=== PATIENT | female | born 1985 | race Caucasian/White ===

== ENCOUNTER → 2018-11-10 | Outpatient (CLI) | payer OTHER ==
--- NOTE | 2018-11-10 14:36 | US ---
EXAMINATION TYPE: US abdomen complete DATE OF EXAM: 11/10/2018 COMPARISON: NONE CLINICAL HISTORY: R10.30 LOWER ABD PAIN,R10.9 LT LATERAL ABD PAIN,K45.8. LUQ PAIN FOR 1 MONTH, starte d new supplements, stopped smoking EXAM MEASUREMENTS: Liver Length: 13.9 cm Gallbladder Wall: 0.2 cm CBD: 0.4 cm Spleen: 11.7 cm Right Kidney: 10.1 x 4.2 x 5.3 cm Left Kidney: 10.3 x 5.0 x 5.0 cm Pancreas: wnl Liver: wnl Gallbladder: wnl Evidence for sonographic Flower's sign: no CBD: wnl Spleen: wnl Right Kidney: wnl Left Kidney: wnl Upper IVC: wnl Abd Aorta: wnl LUQ pain, pressure and palp that could not be recreated at time of exam. Normal bowel gas seen with n o obvious abnormality noted, even with valsalva maneuver. The liver is homogenous. The intrahepatic portion of the IVC and proximal abdominal aorta are within normal limits. There is no evidence of cholelithiasis. Common bile duct is unremarkable. The visu alized portions of the pancreas are homogenous. The spleen is unremarkable. Kidneys are symmetric a nd free of hydronephrosis. No renal lesions are seen. IMPRESSION: Unremarkable abdominal ultrasound. No sonographic evidence of cholelithiasis or acute cho lecystitis.
--- NOTE | 2018-11-10 14:38 | US ---
EXAMINATION TYPE: US pelvic complete DATE OF EXAM: 11/10/2018 COMPARISON: NONE CLINICAL HISTORY: R10.30 LOWER ABD PAIN,R10.9 LEFT LATERAL ABD PAIN K45.8. Left sided pain for 1 renny h, just started new supplements, changed control in June, , TECHNIQUE: TA. Transabdominal sonographic images of the pelvis were acquired. Date of LMP: Jun 2018, started new control that has stopped cycles EXAM MEASUREMENTS: Uterus: 9.7 x 5.5 x 4.5 cm Endometrial Stripe: 0.6 cm Right Ovary: 1.8 x 2.6 x 1.4 cm Left Ovary: 3.8 x 3.1x 1.8 cm 1. Uterus: Anteverted wnl 2. Endometrium: wnl 3. Right Ovary: wnl 4. Left Ovary: 2.1cm dominate follicle versus small cyst 5. Bilateral Adnexa: wnl 6. Posterior cul-de-sac: wnl IMPRESSION: Dominant 2.1 cm simple appearing left ovarian follicle, otherwise unremarkable pelvic ult rasound.
== END | disposition home or self-care (01) ==
LOC: RADUSWWP 13:23
PROVIDERS: ATTEND Family Medicine
DX: R10.30 Lower abdominal pain, unspecified (principal); R10.9 Unspecified abdominal pain
CPT/HCPCS: 76700; 76856